=== PATIENT | male | born 1995 | race African-American/Black ===

== ENCOUNTER 2020-05-15 15:19 | Emergency (ER) | payer SELFPAY ==
[~2020-05-15] VITALS: Ht 188 cm; Wt 84.0 kg
[2020-05-15 16:24] VITALS: BP 124/66
[2020-05-15] MEDS ORDERED: LIDOCAINE 1% PF 2 ML VIAL. INJ ONE (17:15)
[2020-05-15] MEDS ORDERED: CLIN150C14 PO (18:15)
--- NOTE | 2020-05-15 18:16 | PHYS DOC ---
Past Medical History Past Medical History: No Pertinent History (GABI VALIENTE APRN) Past Surgical History: No Surgical History (GABI VALIENTE APRN) Smoking Status: Current Some Day Smoker Alcohol Use: None (GABI VALIENTE APRN) General Adult EDM: Chief Complaint: ABSCESS HPI: HPI: Patient is a 25 year old TERESA Ibrahim to the emergency department with complaints of a abscess to the back of his neck that began 4 to 5 days ago. He reports that his mother squeezed it and some pus came out. Patient reports that his neck is continued to get worse after the pus was drained from it. He denies any fever, itching, rash, sore throat, or decreased range of motion of his neck. Currently rates pain 9 out of 10 on pain scale, he denies any alleviating factors, the pain is worse if the area is touched. (GABI VALIENTE APRN) Review of Systems: Review of Systems: Constitutional: Denies fever or chills. [] Integument: See HPI Neurologic: Denies headache, focal weakness or sensory changes. [] Lymphatic: Denies swollen glands. [] (GABI VALIENTE APRN) Heart Score: Risk Factors: Risk Factors: DM, Current or recent (<one month) smoker, HTN, HLP, family history of CAD, obesity. Risk Scores: Score 0 - 3: 2.5% MACE over next 6 weeks - Discharge Home Score 4 - 6: 20.3% MACE over next 6 weeks - Admit for Clinical Observation Score 7 - 10: 72.7% MACE over next 6 weeks - Early Invasive Strategies (GABI VALIENTE APRN) Current Medications: Current Medications Medications (Trade) Dose Ordered Sig/Josefina Start Time Stop Time Status Last Admin Dose Admin Lidocaine HCl (Xylocaine-Mpf 1% 2ml Vial) 4 ml 1X ONCE 05/15/20 17:15 05/15/20 17:17 DC 05/15/20 17:15 4 ML (GABI VALIENTE APRN) Allergies: Allergies: Allergies Coded Allergies Type Severity Reaction Last Updated Verified No Known Drug Allergies 05/15/20 No (GABI VALIENTE APRN) Physical Exam: PE: Constitutional: Well developed, well nourished, no acute distress, non-toxic appearance. [] HENT: Normocephalic, atraumatic, bilateral external ears normal, nose normal. [] Eyes: PERRLA, EOMI, conjunctiva normal, no discharge. [] Neck: Normal range of motion, supple, no bony tenderness, no stridor. [] Cardiovascular:Heart rate regular rhythm Lungs & Thorax: Respirations even and unlabored, no retractions, no respiratory distress Abdomen: soft, no tenderness Skin: Warm, dry; erythremic, tender area to posterior neck with central pustule draining blood streaked yellow pus consistent with cutaneous abscess. Extremities: No cyanosis, ROM intact, no edema. [] Neurologic: Alert and oriented X 3, no focal deficits noted. [] Psychologic: Affect normal, judgement normal, mood normal. [] (GABI VALIENTE APRN) Current Patient Data: Vital Signs: Vital Signs Date Time Temp Pulse Resp B/P (MAP) Pulse Ox O2 Delivery O2 Flow Rate FiO2 05/15/20 16:24 98.1 75 18 124/66 (85) 98 Room Air 98.1 (GABI VALIENTE APRN) EKG: EKG: [] (GABI VALIENTE APRN) Radiology/Procedures: Radiology/Procedures: Indication: abscess Procedure: The patient was positioned appropriately. Local anesthesia was 1% lidocaine. An incision was then made over the apex of the lesion and a moderate amount of bloody pus material was expressed. T The patient tolerated the procedure well with minimal blood loss. Complications: none.[] (GABI VALIENTE APRN) Course & Med Decision Making: Course & Med Decision Making Pertinent Labs and Imaging studies reviewed. (See chart for details) [] (GABI VALIENTE APRN) Course & Med Decision Making I have reviewed the PA/COURT ADVOCATE's note and Plan of Care. I was available for consultation as needed during the patient's visit in the emergency department. I agree with the clinical impression, plans and disposition. (KELSEY MARLOW MD) Johnnie Disclaimer: Johnnie Disclaimer: This electronic medical record was generated, in whole or in part, using a voice recognition dictation system. (GABI VALIENTE APRN) Departure Departure Impression: Primary Impression: Cutaneous abscess of neck Disposition: HOME, SELF-CARE Condition: STABLE Referrals: NO PCP (PCP) Patient Instructions: Abscess, Care After Additional Instructions: Fill the prescription(s) and use as directed. You may take tylenol or ibuprofen as needed for pain. Leave the Dressing that was placed in the ER in place for the next 24 hours, then change the dressing twice daily and apply antibiotic ointment as needed. You may apply warm, moist packs to the area to help decrease discomfort. Follow up with your primary care doctor or return to the ER in 48 hours to have wound rechecked. Return to the ER sooner if your symptoms worsen. [facility] [address] [place] [address] [facility] [address] [place] [address] [facility] [address] [facility] [place] [address] [facility] [address] [place] [address] Replaced By [facility] [address] [place] [address] [facility] [address] [place] [address] [facility] [address] [place] [address] [facility] [address] [place] [address] [facility] [address] [place] [address] [facility] [address] [place] [address] Scripts Clindamycin Hcl (CLINDAMYCIN HCL) 150 Mg Capsule 450 MG PO TID for 7 Days, #63 CAP 0 Refills Prov: GABI VALIENTE APRN 05/15/20 GABI VALIENTE APRN May 15, 2020 18:16 KELSEY MARLOW MD May 15, 2020 19:43
== END 2020-05-15 18:22 | disposition home or self-care (01) ==
LOC: ER 15:19
DX: L02.212 Cutaneous abscess of back [any part, except buttock and flank] (principal); F17.200 Nicotine dependence, unspecified, uncomplicated
CPT/HCPCS: 10060; 99283; J3490